=== PATIENT | female | born 1990 | race Caucasian/White ===

== ENCOUNTER 2020-07-21 12:33 | Observation (INO) ==
[2020-07-21] MEDS ORDERED: Thiamine 100 MG/ML 2 ml VIAL (200 mg) IM ONE (14:29)
[2020-07-21] MEDS ORDERED: Lorazepam PYXIS KEY PRN (14:32)
[2020-07-21] MEDS ORDERED: LORazepam 2 mg VIAL 1 ml IV PUSH SCH (15:00)
[2020-07-21 16:28] LABS: HCG Pregnancy < 0.60 mIU/mL
[2020-07-21 16:35] LABS: ALT 13 U/L (7-52); AST 18 U/L (13-39); Albumin 3.7 g/dL (3.2-5.2); Albumin/Globulin Ratio 1.5 (1-3); Alkaline Phosphatase 51 U/L (34-104); Anion Gap 8 mmol/L (2-11); BUN/Creatinine Ratio 21.3 (8-20); Blood Urea Nitrogen 17 mg/dL (6-24); CO2 Carbon Dioxide 33 mmol/L (22-32); Calcium 8.5 mg/dL (8.6-10.3); Chloride 101 mmol/L (101-111); EGFR African American 102.6 (>60); EGFR Non-African American 84.8 (>60); Globulin 2.4 g/dL (2-4); Glucose 81 mg/dL (70-100); Lipase 17 U/L (11.0-82.0); Sodium 142 mmol/L (135-145); Total Protein 6.1 g/dL (6.4-8.9)
[2020-07-21 16:40] LABS: Hematocrit 22 % (35-47); Hemoglobin 6.6 g/dL (12.0-16.0); Mean Corpuscular HGB Conc 31 g/dL (31-36); Mean Corpuscular Hemoglobin 21 pg (27-31); Mean Corpuscular Volume 69 fL (80-97); Mean Platelet Volume 7.1 fL (7.4-10.4); Platelet Count 266 10^3/uL (150-450); Red Blood Count 3.11 10^6 /uL (3.70-4.87); Red Cell Distribution Width 18 % (10-15)
[2020-07-21 17:00] LABS: Alcohol, S 159 mg/dL (<10)
[2020-07-21 18:16] LABS: Microcytosis 2+
[2020-07-21 18:19] LABS: Polychromasia 1+
[2020-07-21 18:20] LABS: ABS Eosinophils 0.1 10^3/ul (0-0.6); ABS Lymphocytes 1.6 10^3/ul (1.0-4.8); ABS Monocytes 0.5 10^3/ul (0-0.8); ABS Neutrophils 2.7 10^3/ul (1.5-7.7); Eosinophil % 1.6 %; Nucleated Red Blood Cells % 0.1
[2020-07-21] MEDS ORDERED: Ondansetron 4 mg VIAL 2 MG/ML 2 ml VIAL IV PRN (18:39)
[2020-07-21] MEDS ORDERED: NS 0.9% w/ 40 Meq KCL 1000 ML 1,000 ML IV SCH (19:00)
[2020-07-21 19:20] LABS: Corrected Retic Count 0.7 % (0.5-1.5); Hematocrit for Retic CNT 21 % (35-47); Immature Retic Fraction 0.42
[2020-07-21 19:29] LABS: Total Iron Binding Capacity 496 mcg/dL (250-450); Transferrin 354 mg/dL (203-362)
[2020-07-21 19:31] LABS: Phosphorus 3.6 mg/dL (2.5-5.0)
[2020-07-21 19:51] LABS: Ferritin 4.8 ng/mL (11-307)
[2020-07-21 19:54] LABS: Folate 11.51 ng/mL (>3.99)
[2020-07-21 19:55] LABS: Vitamin B12 397 pg/mL (180-914)
[2020-07-21] MEDS ORDERED: Pantoprazole VIAL 40 MG VIAL IV SCH (20:00)
[2020-07-21 20:35] LABS: % Iron Saturation 4 % (15-55); Iron < 20 ug/dL (50-212); Unsaturated Iron Binding < 481 ug/dL
[2020-07-21] MEDS ORDERED: Potassium Chlor 20 meq TAB.ER PO ONE (22:52)
[2020-07-21] MEDS: KCL 20 MEQ/100 ML IVPREMIX 20 MEQ/100 ML BAG IV SCH (23:06)
[2020-07-21 23:19] LABS: Hematocrit 22 % (35-47); Hemoglobin 6.9 g/dL (12.0-16.0)
[2020-07-21] MEDS: Pantoprazole VIAL 40 MG VIAL IV SCH (23:32)
[2020-07-22] MEDS ORDERED: Polyethylene Glycol 3350 17 GM PACKET PO PRN (04:28)
[2020-07-22 08:57] LABS: ABS Eosinophils 0.1 10^3/ul (0-0.6); ABS Lymphocytes 1.2 10^3/ul (1.0-4.8); ABS Monocytes 0.5 10^3/ul (0-0.8); ABS Neutrophils 2.7 10^3/ul (1.5-7.7); Eosinophil % 2.2 %; Hematocrit 27 % (35-47); Hemoglobin 8.6 g/dL (12.0-16.0); Lymphocyte % 26.6 %; Mean Corpuscular HGB Conc 32 g/dL (31-36); Mean Corpuscular Hemoglobin 23 pg (27-31); Mean Corpuscular Volume 72 fL (80-97); Platelet Count 272 10^3/uL (150-450); Red Cell Distribution Width 19 % (10-15); White Blood Count 4.5 10^3/uL (3.5-10.8)
[2020-07-22 09:15] LABS: BUN/Creatinine Ratio 21.6 (8-20); Calcium 8.8 mg/dL (8.6-10.3); EGFR African American 112.3 (>60); EGFR Non-African American 92.8 (>60); Magnesium 1.7 mg/dL (1.9-2.7); Potassium 4.5 mmol/L (3.5-5.0)
[2020-07-22] MEDS ORDERED: PEG 3000 GI LAVAGE 1 GALLON PO ONE (09:57)
[2020-07-22 10:01] LABS: HIV 4th Generation Nonreactive (Nonreactive)
[2020-07-22] MEDS: Pantoprazole VIAL 40 MG VIAL IV SCH ×2 (10:42→21:02)
[2020-07-22] MEDS ORDERED: Magnesium Sulfate 2 gm BAG 2 GM/50 ML BAG IVPB ONE (11:14)
[2020-07-22] MEDS: Multivitamins/Minerals TAB PO SCH (11:23)
[2020-07-22] MEDS: Iron Sucrose 200 MG in NS 0.9% 100 ml BAG 100 ML IVPB SCH (11:24)
[2020-07-22] MEDS ORDERED: Magnesium CITRATE LIQ 300 ML BTL PO ONE (15:41)
[2020-07-23] MEDS: Multivitamins/Minerals TAB PO SCH (08:24)
[2020-07-23] MEDS: Pantoprazole VIAL 40 MG VIAL IV SCH (08:24)
[2020-07-23] MEDS: Iron Sucrose 200 MG in NS 0.9% 100 ml BAG 100 ML IVPB SCH (08:24)
[2020-07-23 09:34] LABS: ABS Eosinophils 0.1 10^3/ul (0-0.6); ABS Lymphocytes 1.6 10^3/ul (1.0-4.8); ABS Monocytes 0.7 10^3/ul (0-0.8); ABS Neutrophils 3.2 10^3/ul (1.5-7.7); Eosinophil % 1.5 %; Hematocrit 27 % (35-47); Hemoglobin 8.5 g/dL (12.0-16.0); Lymphocyte % 28.2 %; Mean Corpuscular HGB Conc 31 g/dL (31-36); Mean Corpuscular Hemoglobin 22 pg (27-31); Mean Corpuscular Volume 72 fL (80-97); Mean Platelet Volume 7.3 fL (7.4-10.4); Platelet Count 270 10^3/uL (150-450); Red Blood Count 3.82 10^6 /uL (3.70-4.87); Red Cell Distribution Width 18 % (10-15); White Blood Count 5.7 10^3/uL (3.5-10.8)
[2020-07-23] MEDS ORDERED: fentaNYL 100 mcg/2 ml 50 MCG/ML VIAL ONE (09:37)
[2020-07-23] MEDS ORDERED: Midazolam 10 mg/10 ml VIAL 1 mg/ml 10 ml VIAL (10 mg) ONE (09:37)
[2020-07-23 09:46] LABS: BUN/Creatinine Ratio 18.8 (8-20); Calcium 8.1 mg/dL (8.6-10.3); EGFR African American 102.6 (>60); EGFR Non-African American 84.8 (>60); Magnesium 2.4 mg/dL (1.9-2.7)
[2020-07-23 16:03] VITALS: BP 98/67
== END 2020-07-23 15:30 | disposition home or self-care (01) ==
LOC: ED 12:33 → MED 12:33
PROVIDERS: ADMIT Internal Medicine; ATTEND Internal Medicine